=== PATIENT | female | born 1985 | race Two or more races ===

== ENCOUNTER 2017-08-04 23:55 | Emergency (ER) | payer MEDICAID ==
[~2017-08-04] VITALS: Ht 152.4 cm; Wt 72.1 kg
[2017-08-05] MEDS ORDERED: NKM (00:05)
[2017-08-05 00:50] VITALS: BP 133/83
[2017-08-05] MEDS ORDERED: IBUPROFEN600 MG ORAL (01:09)
[2017-08-05] MEDS ORDERED: AMOXICILLIN500 MG ORAL (01:09)
[2017-08-05 01:31] VITALS: BP 133/83
--- NOTE | 2017-08-05 09:42 | Diagnostic Imaging Report ---
Indication: Shortness of breath Technique: XRAY Chest 1v Comparison: None Findings: There is poor inspiration. Cardiomediastinal silhouette is within normal limits. There is no gross consolidation or pleural effusion. Osseous structures demonstrate no acute abnormality. Impression: Poor inspiration. No obvious acute cardiopulmonary disease.
--- NOTE | 2017-08-10 01:01 | Emergency Room Report ---
History of Present Illness General Chief Complaint: Chest Pain Source: Patient Present Illness HPI Patient is a 32-year-old female who presented after increased sore throat as well as difficulty breathing. Patient had gradual onset of symptoms. She had associated fever. She was noted to have increased tonsillar pain. She had not been vomiting. Allergies: Coded Allergies: No Known Allergies (Unverified , 08/05/17) Patient History Last Menstrual Period: july 21 Now: No : 2 Para: 2 Reviewed Nursing Documentation: PMH: Agreed; PSxH: Agreed Nursing Documentation-PMH Past Medical History: No Stated History Review of Systems All Other Systems: negative except mentioned in HPI Physical Exam General Appearance: well appearing, no apparent distress, alert, GCS 15 Head: normocephalic, atraumatic ENT: hearing grossly normal, normal voice, tonsillar swelling, pharyngeal erythema, tonsillar exudate Neck: full range of motion, supple Respiratory: no respiratory distress, speaking full sentences Cardiovascular #1: normal peripheral pulses, regular rate, rhythm, no edema Musculoskeletal: normal inspection, back normal, digits/nails normal, no calf tenderness Neurologic: normal inspection, alert, oriented x3, normal gait Psychiatric: mood/affect normal Skin: no rash Medical Decision Making Diagnostic Impression: Primary Impression: Tonsillitis ER Course Patient was sent for sore throat. Differential diagnosis included but was not limited to meningitis, exudative tonsillitis, retropharyngeal abscess, epiglottitis, strep pharyngitis. Patient has a benign exam and does not appear to require any further imaging or laboratory testing at this time. The patient was given antibiotics.The patient is advised to follow up with primary care doctor in 1-2 days. Patient is advised to return if any worsening condition or if any changes in status that are concerning. This report is dictated with [employer] collar setter software which may occasionally lead to discrepancies related to use of this software. Status: improved Disposition: HOME, SELF-CARE Condition: Stable Scripts Ibuprofen* (MOTRIN*) 600 Mg Tablet 600 MG ORAL Q8H PRN for For Pain, #30 TAB 0 Refills Prov: Lawrence Mckeon 08/05/17 Amoxicillin* (AMOXIL*) 500 Mg Capsule 500 MG ORAL THREE TIMES A DAY, #21 CAP Prov: Lawrence Mckeon 08/05/17 Patient Instructions: Nonspecific Chest Pain, Tonsillitis Lawrence Mckeon Aug 10, 2017 01:01
== END 2017-08-05 01:25 | disposition home or self-care (01) ==
LOC: EMR 08-05 00:21
DX: J03.90 Acute tonsillitis, unspecified (principal)
CPT/HCPCS: 71045; 93005; 99283